=== PATIENT | male | born 2000 | race Caucasian/White ===

== ENCOUNTER 2021-04-24 00:24 | Emergency (ER) | payer OTHER, SELFPAY ==
[2021-04-24 00:24] VITALS: BP 146/92; PULSE 83; RESP 18; TEMP 36.6; O2SAT 99; BMI 23.6
[2021-04-24 00:38] LABS: Add Manual Diff / Slide Review NO; Basophils Absolute Auto 0 /uL (0-100); Basophils Percent Auto 0.8 % (0-2); Eosinophils Absolute Auto 100 /uL (0-450); Eosinophils Percent Auto 1.5 % (2-4); Hematocrit 41.1 % (41-53); Hemoglobin 14.1 g/dL (13.5-17.5); Lymphocytes Absolute Auto 1900 /uL (1100-4500); Lymphocytes Percent Auto 37.2 % (25-40); Mean Corpuscular HGB Conc 34.3 % (30-36); Mean Corpuscular Hemoglobin 29.3 PG (26-34); Mean Corpuscular Volume 85.5 fL (80-100); Monocytes Absolute Auto 500 /uL (0-900); Monocytes Percent Auto 9.9 % (3-14); Neutrophils Absolute Auto 2700 /uL (1500-7000); Neutrophils Percent Auto 50.6 % (50-75); Platelet Count 169 X10^3/uL (150-400); Red Blood Cell Count 4.81 X10^6/uL (4.5-5.9); Red Cell Distribution Width 13.2 % (11.6-14.8); White Blood Cell Count 5.2 X10^3/uL (4.5-11.0)
--- NOTE | 2021-04-24 00:39 | ED.FALL ---
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 Approximately 1 hour prior to arrival here in the emergency department he was sitting down when he stood up the next thing he remembers is lying on the floor. Does appear that he hit his head. No other injuries from the event. Never happened to him before. Denies drug and alcohol use. Related Data Home Medications Medication Instructions Recorded Confirmed No Known Home Medications 04/24/21 04/24/21 Allergies Allergy/AdvReac Type Severity Reaction Status Date / Time No Known Drug Allergies Allergy Verified 04/24/21 00:31 Review of Systems Constitutional Constitutional: Denies fever(s), Denies frequent falls and Reports headache(s) ENT Ears, Nose, Mouth, and Throat: Reports headache(s) and Denies neck pain Cardiovascular Cardiovascular: Reports system reviewed and no additional complaints, except as documented Respiratory Respiratory: Reports system reviewed and no additional complaints, except as documented Gastrointestinal Gastrointestinal: Reports system reviewed and no additional complaints, except as documented Musculoskeletal Musculoskeletal: Denies back pain and Denies neck pain Integumentary/Breasts Skin/Breast: Reports system reviewed and no additional complaints, except as documented Neurologic Neurologic: Denies frequent falls and Reports headache(s) Hematologic/Lymphatic On Anticoagulants: No Patient History Medical History Healthy adult Social History Smoking Status: Never smoker Smoking Status: Never smoker Substance Use Type: does not use Exam Initial Vital Signs Initial Vital Signs: Vital Signs Temperature 97.8 F 04/24/21 00:24 Pulse Rate 83 04/24/21 00:24 Respiratory Rate 18 04/24/21 00:24 Blood Pressure 146/92 H 04/24/21 00:24 Pulse Oximetry 99 04/24/21 00:24 HENMT Head: normal to inspection and normocephalic Nose: external nose normal Face and sinus: normal facial exam Resp Effort & Inspection: normal respiratory effort Auscultation: clear to auscultation bilaterally Cardio Rate: regular rate Rhythm: regular rhythm GI Inspection: normal to inspection Skin General: no rashes or lesions noted Neuro General: patient alert, patient awake, patient oriented x3 and moves all extremities Extrem General: normal to inspection and capillary refill normal Psych Appearance: grossly normal Scores GCS [place] coma scale eye opening: Spontaneous [place] coma scale verbal response: Orientated [place] coma scale motor response: Obey commands [place] coma scale total score: 15 Nexus Score for C-Spine Focal Neurologic deficit present: No Midline spinal tenderness present: No Altered level of conciousness present: No Intoxication present: No Distracting Injury Present: No Nexus Criteria for C-spine: 0 Course Orders Ordered: ED Orders 04/24/21 00:26 EKG-12 Lead Stat 04/24/21 00:28 Basic Metabolic Panel Stat COVID19 -Nasal swab/Pre-Proc Stat Complete Blood Count AUTO DIFF Stat Vital Signs Vital signs: Vital Signs - 8 hr 04/24/21 00:24 Temperature 97.8 F Pulse Rate 83 Respiratory Rate 18 Blood Pressure 146/92 H Pulse Oximetry 99 MDM - Fall Lab Data Attestation: I reviewed the patient's lab results. Result diagrams: 04/24/21 00:28 04/24/21 00:28 Labs: Lab Results 04/24/21 04/24/21 04/24/21 Range/Units 00:28 00:28 00:28 WBC 5.2 (4.5-11.0) X10^3/uL RBC 4.81 (4.5-5.9) X10^6/uL Hgb 14.1 (13.5-17.5) g/dL Hct 41.1 (41-53) % MCV 85.5 (80-100) fL MCH 29.3 (26-34) PG MCHC 34.3 (30-36) % RDW 13.2 (11.6-14.8) % Plt Count 169 (150-400) X10^3/uL Neut % (Auto) 50.6 (50-75) % Lymph % (Auto) 37.2 (25-40) % [place] % (Auto) 9.9 (3-14) % Eos % (Auto) 1.5 L (2-4) % Baso % (Auto) 0.8 (0-2) % Neut # (Auto) 2700 (7020-9749) /uL Lymph # (Auto) 1900 (6393-7295) /uL [place] # (Auto) 500 (0-900) /uL Eos # (Auto) 100 (0-450) /uL Baso # (Auto) 0 (0-100) /uL Sodium 140 (137-145) mmol/L Potassium 3.6 (3.4-5.1) mmol/L Chloride 105 (98-107) mmol/L Carbon Dioxide 30 (22-32) mmol/L BUN 16 (9-20) mg/dL Creatinine 0.89 (0.66-1.25) mg/dL Estimated GFR > 60.0 (>60) mL/min BUN/Creatinine Ratio 18.0 (6-22) Glucose 113 H (70-100) mg/dL Calcium 9.6 (8.4-10.2) mg/dL SARS-CoV-2 (PCR) Negative (Negative) ECG Data Attestation: I personally reviewed and interpreted this ECG as follows: Prior ECG tracings: available for review Interpretation: Sinus rhythm Ventricular rate 80 Normal axis Normal QRS Normal QTC is no ST T wave changes MDM Narrative Medical decision making narrative: Patient's labs and vital signs here in the emergency department are unremarkable. His presentation is consistent with a vasovagal syncope. Patient has no ectopy on the monitor. Is otherwise healthy. Will hold on further workup for now. Will have him contact his medical department for follow-up. He was given return precautions and follow-up instructions. Expressed understanding and agreement plan. Discharge Plan Departure Patient Disposition: Home Clinical Impression: Syncope Instructions: DI for Syncope in Adults (Fainting) Activity Restrictions/Additional Instructions: Your workup here in the emergency department is very reassuring. Your presentation is consistent with what we call a vasovagal syncope. I recommend that you contact your medical department for a follow-up. Return to the emergency department for any new or worsening symptoms. Prescriptions: No Action No Known Home Medications 0RF
[2021-04-24 00:47] LABS: Blood Urea Nitrogen 16 mg/dL (9-20); Calcium 9.6 mg/dL (8.4-10.2); Carbon Dioxide 30 mmol/L (22-32); Chloride 105 mmol/L (98-107); Estimated Glomerular Filt Rate > 60.0 mL/min (>60); Glucose 113 mg/dL (70-100); HEMOLYSIS < 15 (0-50); Potassium 3.6 mmol/L (3.4-5.1); Sodium 140 mmol/L (137-145)
[2021-04-24 00:50] LABS: COVID19 -Nasal RAPID Negative (Negative)
[2021-04-24 01:11] VITALS: BP 126/78; PULSE 81; RESP 15; O2SAT 98
== END 2021-04-24 01:14 | disposition home or self-care (01) ==
LOC: ED 01:02
PROVIDERS: Emergency Provider Emergency Medicine
DX: R55 Syncope and collapse (principal); R03.0 Elevated blood-pressure reading, without diagnosis of hypertension; Z20.822 Contact with and (suspected) exposure to COVID-19
CPT/HCPCS: 80048; 85025; 87635; 93005; 93010; 99282; 99283; C9803